=== PATIENT | female | born 1970 | race Two or more races ===

== ENCOUNTER 2021-06-30 09:47 | Outpatient (CLI) | payer OTHER | END 2021-06-30 09:57 | disposition home or self-care (01) | LOC: SONOGRAMA 09:47 | PROVIDERS: ATTEND Pathology Anatomic Pathology & Clinical Pathology | DX: E04.2 Nontoxic multinodular goiter (principal) ==

== ENCOUNTER 2024-03-14 08:44 | Outpatient (CLI) | payer OTHER | END 2024-03-14 08:55 | disposition home or self-care (01) | LOC: SONOGRAMA 08:44 | PROVIDERS: ATTEND Internal Medicine Pulmonary Disease | DX: J98.6 Disorders of diaphragm (principal) ==